=== PATIENT | female | born 1980 | race Caucasian/White ===

== ENCOUNTER 2017-11-24 15:07 | Emergency (ER) | payer MEDICAID ==
[~2017-11-24] VITALS: Ht 165.1 cm; Wt 77.1 kg
[~2017-11-24 15:07] MED LIST: ACETAMINOPHEN-1 EAC1 PO; AMITRIPTYLINE H25 M2 PO; AMITRIPTYLINE H50 M4 PO; AMITRIPTYLINE H75 M1 PO; AMOXICILLIN500 M1 PO; ATIVAN1 MG PO; AUGMENTIN 875-1 EACH PO; B & O SUPPRETT1 EAC1 RECTAL; BACTRIM DS TAB1 EACH; BENTYL 20 MG TA20 M1 PO; BUSPAR; BUSPAR15 MG PO; CIPRO250 M1 PO; CIPRO500 MG PO; CO Q-1010 MG PO; CO Q-10100 MG PO; CYMBALTA20 MG PO; DOXEPIN 25 MG C25 M1 PO; FLAGYL500 MG PO; HORMONE; HYDROCODON-ACE1 EAC7 PO; HYDROCODONE-AP1 EAC6 PO; LEVOTHYROXIN0.025 MG PO; LIDODERM 5%1 PATC1 TRANSDERM; LIDODERM 5%1 PATCH TOP; MEDROL DOSPAK21 TA1 PO; MEDROLDOSEPACK PO; NEURONTIN600 MG PO; NORCO 5-325 TA1 EACH PO; ONDANSETRON HCL4 M2 PO; OXYBUTYNIN 5 MG5 M2 PO; OXYCODONE HCL 55 MG PO; PENICILLIN VK250 MG PO; PERCOCET 5-3251 EACH PO; PHENERGAN 25 MG25 M1 PO; PHENERGAN 25 MG25 MG PO; PRAZOSIN HCL1 MG PO; PREDNISONE 20 M20 MG; PROMS25 WY RECTAL; PROTONIX 20 MG20 MG PO; PROTONIX40 M1 PO; PYRIDIUM200 MG PO; REMERON15 MG PO; ROBAXIN 750 MG750 M1 PO; ROBAXIN500 MG PO; SEROQUEL 25 MG25 M1 PO; TRAMADOL 50 MG50 MG PO; ULTRAM 50MG TAB50 MG PO; VALIUM5 MG PO; VITAMIN D1000 UNIT PO; ZOFRAN ODT4 MG PO; ZOFRAN ODT4 MG SUBLING; ZOFRAN4 MG PO; ZOLOFT 50 MG TA50 M1
[2017-11-24 16:00] LABS: INFLUENZA A ANTIGEN None Detected (None Detect); INFLUENZA B ANTIGEN None Detected (None Detect)
[2017-11-24 16:13] VITALS: BP 127/74
== END 2017-11-24 16:14 | disposition home or self-care (01) ==
LOC: M.ERS 15:07
PROVIDERS: Physician Assistant
DX: B34.9 Viral infection, unspecified (principal); F41.0 Panic disorder [episodic paroxysmal anxiety]; E03.9 Hypothyroidism, unspecified; F17.210 Nicotine dependence, cigarettes, uncomplicated; J45.909 Unspecified asthma, uncomplicated; Z88.5 Allergy status to narcotic agent; Z88.8 Allergy status to other drugs, medicaments and biological substances; Z91.041 Radiographic dye allergy status; Z90.710 Acquired absence of both cervix and uterus; Z91.09 Other allergy status, other than to drugs and biological substances; Z90.49 Acquired absence of other specified parts of digestive tract

== ENCOUNTER 2017-12-08 04:11 | Emergency (ER) | payer MEDICAID ==
[~2017-12-08] VITALS: Ht 165.1 cm; Wt 77.1 kg
[2017-12-08] MEDS ORDERED: VISTARIL 25 MG25 M1 PO (04:17)
[2017-12-08 04:37] LABS: URINE BILIRUBIN NEGATIVE (Negative); URINE BLOOD 3+ (Negative); URINE CLARITY SL CLOUDY; URINE GLUCOSE-RANDOM NEGATIVE (Negative); URINE KETONES NEGATIVE (Negative); URINE LEUKOCYTES-REFLEX NEGATIVE (Negative); URINE NITRITE-REFLEX NEGATIVE (Negative); URINE PROTEIN NEGATIVE (Negative); URINE SPECIFIC GRAVITY 1.015 (1.005-1.030); URINE UROBILINOGEN 0.2 E.U./dl (0.2-1.0)
[2017-12-08 04:43] LABS: AMP/METHAMP Negative (Negative); BARBITURATES Negative (Negative); BENZODIAZEPINES Negative (Negative); COCAINE Negative (Negative); METHADONE Negative (Negative); OPIATES Negative (Negative); PCP Negative (Negative); THC POSITIVE (Negative)
[2017-12-08 04:44] LABS: URINE COLOR PINK
[2017-12-08 04:56] LABS: ABSOLUTE EOSINOPHILS 0.1 thou/uL (0.0-0.7); ABSOLUTE LYMPHOCYTES 1.9 thou/uL (0.8-5.3); ABSOLUTE MONOCYTES 0.4 thou/uL (0.0-1.2); ABSOLUTE NEUTROPHILS 5.2 thou/uL (1.6-8.1); BASOPHILS 0.6 %; EOSINOPHILS 1.2 %; HEMOGLOBIN 14.3 gm/dL (12.0-15.0); LYMPHOCYTES 24.5 %; MCH 30.9 pg (26.0-34.0); MCV 88.5 fL (80.0-100.0); MONOCYTES 5.2 %; MPV 6.9 fl. (7.2-11.1); NUCLEATED RBCS 0 /100WBC; PLATELET COUNT* 261 thou/uL (150-400); POLYS 68.5 %; RBC 4.63 mil/uL (4.20-5.00); RDW-CV 13.1 % (10.5-14.5); WBC 7.7 thou/uL (4.0-11.0)
[2017-12-08 05:10] LABS: CALCIUM 8.7 mg/dL (8.5-10.1); CREATININE 0.8 mg/dL (0.6-1.3); POTASSIUM 3.8 mmol/L (3.5-5.1)
[2017-12-08 05:15] LABS: ALBUMIN 3.6 g/dL (3.4-5.0); TOTAL BILIRUBIN 0.3 mg/dL (<0.1-1.0); TOTAL PROTEIN 6.9 g/dL (6.4-8.2)
[2017-12-08 05:24] LABS: BACTERIA-REFLEX 1-9 Few /HPF (None Seen); CASTS None Seen /LPF (None Seen); CRYSTALS None Seen /LPF (None Seen); SQUAMOUS 4-10 Moderate /LPF (0-3); URINE RBC >20 Many /HPF (0-2); URINE WBC-REFLEX None Seen /HPF (0-5)
[2017-12-08] MEDS ORDERED: HYDROCODONE-AP1 EAC6 PO (06:25)
[2017-12-08 06:34] VITALS: BP 132/82
== END 2017-12-08 06:38 | disposition home or self-care (01) ==
LOC: M.ERS 04:11
PROVIDERS: Emergency Medicine
DX: R31.9 Hematuria, unspecified (principal); F41.0 Panic disorder [episodic paroxysmal anxiety]; N30.10 Interstitial cystitis (chronic) without hematuria; J45.909 Unspecified asthma, uncomplicated; E03.9 Hypothyroidism, unspecified; G43.909 Migraine, unspecified, not intractable, without status migrainosus; F17.210 Nicotine dependence, cigarettes, uncomplicated; Z90.710 Acquired absence of both cervix and uterus; Z90.49 Acquired absence of other specified parts of digestive tract; Z86.14 Personal history of Methicillin resistant Staphylococcus aureus infection; Z88.5 Allergy status to narcotic agent; Z88.8 Allergy status to other drugs, medicaments and biological substances; Z91.041 Radiographic dye allergy status; Z88.6 Allergy status to analgesic agent

== ENCOUNTER 2018-04-03 18:36 | Emergency (ER) | payer MEDICAID ==
[~2018-04-03] VITALS: Ht 165.1 cm; Wt 77.1 kg
[~2018-04-03 18:36] MED LIST changes: +VISTARIL 25 MG25 M1 PO
[2018-04-03] MEDS ORDERED: AMBIEN 10 MG TA10 MG PO (18:52)
[2018-04-03] MEDS ORDERED: BUSPIRONE HCL10 MG PO (18:52)
[2018-04-03] MEDS ORDERED: BRINTELLIX10 MG PO (18:53)
[2018-04-03 19:40] LABS: ABSOLUTE BASOPHILS 0.1 thou/uL (0.0-0.2); ABSOLUTE EOSINOPHILS 0.1 thou/uL (0.0-0.7); ABSOLUTE LYMPHOCYTES 2.1 thou/uL (0.8-5.3); ABSOLUTE MONOCYTES 0.4 thou/uL (0.0-1.2); ABSOLUTE NEUTROPHILS 5.3 thou/uL (1.6-8.1); BASOPHILS 0.7 %; EOSINOPHILS 1.2 %; HEMATOCRIT 39.7 % (37.0-47.0); HEMOGLOBIN 13.7 gm/dL (12.0-15.0); LYMPHOCYTES 26.8 %; MCH 30.4 pg (26.0-34.0); MCHC 34.6 g/dL (28.0-37.0); MONOCYTES 5.1 %; MPV 7.3 fl. (7.2-11.1); NUCLEATED RBCS 0 /100WBC; PLATELET COUNT* 287 thou/uL (150-400); POLYS 66.2 %; RBC 4.51 mil/uL (4.20-5.00); RDW-CV 13.9 % (10.5-14.5)
[2018-04-03 19:44] LABS: CALCIUM 9.1 mg/dL (8.5-10.1); CREATININE 0.9 mg/dL (0.6-1.3); POTASSIUM 3.5 mmol/L (3.5-5.1)
[2018-04-03 19:49] LABS: ALBUMIN 3.7 g/dL (3.4-5.0); TOTAL BILIRUBIN 0.4 mg/dL (<0.1-1.0); TOTAL PROTEIN 7.2 g/dL (6.4-8.2)
[2018-04-03 20:33] LABS: URINE BILIRUBIN NEGATIVE (Negative); URINE BLOOD NEGATIVE (Negative); URINE CLARITY CLEAR; URINE COLOR YELLOW; URINE GLUCOSE-RANDOM NEGATIVE (Negative); URINE KETONES NEGATIVE (Negative); URINE LEUKOCYTES-REFLEX TRACE (Negative); URINE NITRITE-REFLEX NEGATIVE (Negative); URINE PROTEIN NEGATIVE (Negative); URINE SPECIFIC GRAVITY >= 1.030 (1.005-1.030); URINE UROBILINOGEN 0.2 E.U./dl (0.2-1.0)
[2018-04-03 20:41] LABS: HYALINE CASTS 0-3 Few /LPF (None Seen)
[2018-04-03 20:44] LABS: CRYSTALS None Seen /LPF (None Seen); MUCUS None Seen strn/LPF (None Seen); SQUAMOUS 4-10 Moderate /LPF (0-3)
[2018-04-03 20:45] LABS: BACTERIA-REFLEX 1-9 Few /HPF (None Seen)
[2018-04-03 20:46] LABS: URINE RBC None Seen /HPF (0-2); URINE WBC-REFLEX 0-5 Rare /HPF (0-5)
[2018-04-03] MEDS ORDERED: ZOFRAN4 MG PO (21:12)
[2018-04-03] MEDS ORDERED: BENTYL 20 MG TA20 M1 PO (21:12)
[2018-04-03] MEDS ORDERED: PROMETHAZINE HC25 M1 PO (21:18)
[2018-04-03 21:30] VITALS: BP 124/61
== END 2018-04-03 21:35 | disposition home or self-care (01) ==
LOC: M.ERS 18:36
PROVIDERS: Nurse Practitioner
DX: R10.9 Unspecified abdominal pain (principal); R11.2 Nausea with vomiting, unspecified; J45.909 Unspecified asthma, uncomplicated; E03.9 Hypothyroidism, unspecified; G43.909 Migraine, unspecified, not intractable, without status migrainosus; Z90.49 Acquired absence of other specified parts of digestive tract; Z90.710 Acquired absence of both cervix and uterus; F17.210 Nicotine dependence, cigarettes, uncomplicated; Z88.5 Allergy status to narcotic agent; Z88.6 Allergy status to analgesic agent; Z88.8 Allergy status to other drugs, medicaments and biological substances

== ENCOUNTER 2018-04-05 13:10 | Emergency (ER) | payer MEDICAID ==
[~2018-04-05] VITALS: Ht 167.6 cm; Wt 78.5 kg
[~2018-04-05 13:10] MED LIST changes: +AMBIEN 10 MG TA10 MG PO; +BRINTELLIX10 MG PO; +BUSPIRONE HCL10 MG PO; +PROMETHAZINE HC25 M1 PO
[2018-04-05 14:02] LABS: ABSOLUTE BASOPHILS 0.1 thou/uL (0.0-0.2); ABSOLUTE EOSINOPHILS 0.1 thou/uL (0.0-0.7); ABSOLUTE LYMPHOCYTES 1.6 thou/uL (0.8-5.3); ABSOLUTE MONOCYTES 0.4 thou/uL (0.0-1.2); ABSOLUTE NEUTROPHILS 4.9 thou/uL (1.6-8.1); BASOPHILS 0.8 %; EOSINOPHILS 1.4 %; HEMATOCRIT 37.9 % (37.0-47.0); HEMOGLOBIN 13.3 gm/dL (12.0-15.0); LYMPHOCYTES 22.3 %; MCH 30.9 pg (26.0-34.0); MCHC 35.2 g/dL (28.0-37.0); MCV 87.8 fL (80.0-100.0); MONOCYTES 5.8 %; MPV 6.9 fl. (7.2-11.1); NUCLEATED RBCS 0 /100WBC; PLATELET COUNT* 257 thou/uL (150-400); POLYS 69.7 %; RBC 4.31 mil/uL (4.20-5.00); RDW-CV 13.6 % (10.5-14.5)
[2018-04-05 14:11] LABS: URINE BILIRUBIN NEGATIVE (Negative); URINE BLOOD TRACE (Negative); URINE CLARITY CLEAR; URINE COLOR YELLOW; URINE GLUCOSE-RANDOM NEGATIVE (Negative); URINE KETONES NEGATIVE (Negative); URINE LEUKOCYTES NEGATIVE (Negative); URINE NITRITE NEGATIVE (Negative); URINE PROTEIN NEGATIVE (Negative); URINE UROBILINOGEN 0.2 E.U./dl (0.2-1.0)
[2018-04-05 14:12] LABS: CALCIUM 9.2 mg/dL (8.5-10.1); CREATININE 0.7 mg/dL (0.6-1.3); POTASSIUM 3.6 mmol/L (3.5-5.1)
[2018-04-05 14:17] LABS: BACTERIA None Seen /HPF (None Seen); CASTS None Seen /LPF (None Seen); CRYSTALS None Seen /LPF (None Seen); SQUAMOUS 0-3 Few /LPF (0-3); URINE RBC 0-2 Rare /HPF (0-2); URINE WBC None Seen /HPF (0-5)
[2018-04-05 14:22] LABS: ALBUMIN 3.6 g/dL (3.4-5.0); TOTAL BILIRUBIN 0.3 mg/dL (<0.1-1.0); TOTAL PROTEIN 6.8 g/dL (6.4-8.2)
[2018-04-05 14:28] LABS: AMP/METHAMP Negative (Negative); BARBITURATES Negative (Negative); BENZODIAZEPINES Negative (Negative); COCAINE Negative (Negative); METHADONE Negative (Negative); OPIATES Negative (Negative); PCP Negative (Negative); THC POSITIVE (Negative)
[2018-04-05 15:05] VITALS: BP 106/69
== END 2018-04-05 15:22 | disposition home or self-care (01) ==
LOC: M.ERS 13:10
PROVIDERS: Nurse Practitioner
DX: R11.0 Nausea (principal); F41.0 Panic disorder [episodic paroxysmal anxiety]; E03.9 Hypothyroidism, unspecified; G43.909 Migraine, unspecified, not intractable, without status migrainosus; Z90.49 Acquired absence of other specified parts of digestive tract; Z90.710 Acquired absence of both cervix and uterus; Z86.14 Personal history of Methicillin resistant Staphylococcus aureus infection; Z91.041 Radiographic dye allergy status; Z88.5 Allergy status to narcotic agent; Z88.8 Allergy status to other drugs, medicaments and biological substances

== ENCOUNTER 2018-04-28 16:00 | Emergency (ER) | payer MEDICAID ==
[~2018-04-28] VITALS: Ht 165.1 cm; Wt 77.1 kg
[2018-04-28] MEDS ORDERED: PAIN RELIEF325 MG PO (16:16)
[2018-04-28 16:30] LABS: URINE BILIRUBIN NEGATIVE (Negative); URINE BLOOD TRACE (Negative); URINE CLARITY CLEAR; URINE COLOR YELLOW; URINE GLUCOSE-RANDOM NEGATIVE (Negative); URINE KETONES NEGATIVE (Negative); URINE LEUKOCYTES-REFLEX 1+ (Negative); URINE NITRITE-REFLEX NEGATIVE (Negative); URINE PROTEIN TRACE (Negative); URINE SPECIFIC GRAVITY >= 1.030 (1.005-1.030); URINE UROBILINOGEN 0.2 E.U./dl (0.2-1.0)
[2018-04-28 16:38] LABS: HYALINE CASTS >10 Many /LPF (None Seen); SQUAMOUS >10 Many /LPF (0-3); WBC CLUMPS Few (None Seen)
[2018-04-28 16:39] LABS: CRYSTALS None Seen /LPF (None Seen); URINE RBC 0-2 Rare /HPF (0-2)
[2018-04-28 16:40] LABS: BACTERIA-REFLEX 1-9 Few /HPF (None Seen); MUCUS 0-3 Light strn/LPF (None Seen)
[2018-04-28 16:45] LABS: ABSOLUTE EOSINOPHILS 0.1 thou/uL (0.0-0.7); ABSOLUTE LYMPHOCYTES 1.8 thou/uL (0.8-5.3); ABSOLUTE MONOCYTES 0.5 thou/uL (0.0-1.2); ABSOLUTE NEUTROPHILS 7.1 thou/uL (1.6-8.1); BASOPHILS 0.3 %; EOSINOPHILS 0.6 %; HEMATOCRIT 37.1 % (37.0-47.0); HEMOGLOBIN 12.8 gm/dL (12.0-15.0); LYMPHOCYTES 19.5 %; MCH 30.9 pg (26.0-34.0); MCHC 34.6 g/dL (28.0-37.0); MCV 89.5 fL (80.0-100.0); MONOCYTES 4.9 %; MPV 6.9 fl. (7.2-11.1); NUCLEATED RBCS 0 /100WBC; PLATELET COUNT* 281 thou/uL (150-400); POLYS 74.7 %; RBC 4.15 mil/uL (4.20-5.00); RDW-CV 13.1 % (10.5-14.5); WBC 9.5 thou/uL (4.0-11.0)
[2018-04-28 16:56] LABS: CALCIUM 8.2 mg/dL (8.5-10.1); CREATININE 0.9 mg/dL (0.6-1.3); POTASSIUM 3.6 mmol/L (3.5-5.1)
[2018-04-28 17:01] LABS: ALBUMIN 3.3 g/dL (3.4-5.0); TOTAL BILIRUBIN 0.4 mg/dL (<0.1-1.0); TOTAL PROTEIN 6.6 g/dL (6.4-8.2)
[2018-04-28] MEDS ORDERED: NORCO 5-325 TA1 EAC1 PO (17:25)
[2018-04-28] MEDS ORDERED: PHENAZOPYRIDIN200 M2 PO (17:25)
[2018-04-28] MEDS ORDERED: BACTRIM DS TAB1 EACH PO (17:26)
[2018-04-28 17:41] VITALS: BP 122/71
== END 2018-04-28 17:42 | disposition home or self-care (01) ==
LOC: M.ERS 16:00
PROVIDERS: Nurse Practitioner Family
DX: N39.0 Urinary tract infection, site not specified (principal); R11.2 Nausea with vomiting, unspecified; E03.9 Hypothyroidism, unspecified; F41.0 Panic disorder [episodic paroxysmal anxiety]; G43.909 Migraine, unspecified, not intractable, without status migrainosus; J45.909 Unspecified asthma, uncomplicated; F17.210 Nicotine dependence, cigarettes, uncomplicated; Z88.5 Allergy status to narcotic agent; Z88.6 Allergy status to analgesic agent; Z88.8 Allergy status to other drugs, medicaments and biological substances; Z90.710 Acquired absence of both cervix and uterus; Z90.49 Acquired absence of other specified parts of digestive tract; Z86.14 Personal history of Methicillin resistant Staphylococcus aureus infection

== ENCOUNTER 2018-07-20 04:25 | Emergency (ER) | payer OTHER, MEDICAID ==
[~2018-07-20] VITALS: Ht 165.1 cm; Wt 77.1 kg
[~2018-07-20 04:25] MED LIST changes: +BACTRIM DS TAB1 EACH PO; +NORCO 5-325 TA1 EAC1 PO; +PAIN RELIEF325 MG PO; +PHENAZOPYRIDIN200 M2 PO
[2018-07-20 06:25] VITALS: BP 116/72
== END 2018-07-20 06:29 | disposition home or self-care (01) ==
LOC: M.ERS 04:25
DX: R10.12 Left upper quadrant pain (principal); R11.2 Nausea with vomiting, unspecified; R10.13 Epigastric pain; R10.31 Right lower quadrant pain; E03.9 Hypothyroidism, unspecified; G43.909 Migraine, unspecified, not intractable, without status migrainosus; J45.909 Unspecified asthma, uncomplicated; Z90.49 Acquired absence of other specified parts of digestive tract; Z90.710 Acquired absence of both cervix and uterus; F17.210 Nicotine dependence, cigarettes, uncomplicated; Z88.5 Allergy status to narcotic agent; Z88.8 Allergy status to other drugs, medicaments and biological substances